=== PATIENT | male | born 1970 | race African-American/Black ===

== ENCOUNTER 2020-12-15 23:37 | Emergency (ER) | payer OTHER ==
[~2020-12-15] VITALS: Ht 170.2 cm; Wt 82.1 kg
[2020-12-16 01:17] VITALS: BP 125/88; TEMP 98.4
== END 2020-12-16 01:17 | disposition home or self-care (01) ==
LOC: ED 23:37
DX: M25.562 Pain in left knee (principal); M17.12 Unilateral primary osteoarthritis, left knee
CPT/HCPCS: 96372; 99283; J1885; J2930